=== PATIENT | male | born 1960 | race Caucasian/White ===

== ENCOUNTER 2019-08-07 13:19 | Outpatient (CLI) | payer MEDICARE, SELFPAY ==
--- NOTE | 2019-08-07 13:28 | XR_ITS ---
WS: [id number] RIGHT TIBIA-FIBULA 2 VIEWS HISTORY: PAIN IN RIGHT LOWER LEG COMPARISON: None available. No acute fracture or dislocation. No soft tissue abnormality. Heavy osteophytes projecting from the q uadriceps tendon attachment and the patellar tendon attachment from the patella. XR/XR tibia fibula RT 2V 13565 IMPRESSION: 1. Advanced enthesopathy at the patella. 2. No fractures or soft tissue abnormality.
== END 2019-08-07 13:20 | disposition home or self-care (01) ==
LOC: RADWPI 13:25
PROVIDERS: Family Provider Nurse Practitioner Family; PCP Nurse Practitioner Family; Visit Provider Nurse Practitioner Family
DX: M76.51 Patellar tendinitis, right knee (principal)
CPT/HCPCS: 73590

== ENCOUNTER 2023-03-27 12:45 | Emergency (ER) | payer MEDICARE, SELFPAY ==
[2023-03-27 12:53] VITALS: BP 126/76; PULSE 63; RESP 18; TEMP 36.7; O2SAT 96; BMI 44.7
--- NOTE | 2023-03-27 13:28 | W.ED.WEAKNES ---
HPI - Weakness General: Chief complaint: Weakness Stated complaint: temp and stuffy Time Seen by Provider: 03/27/23 13:07 Source: patient Mode of arrival: ambulatory History of Present Illness: 63-year-old male presents to the emergency room complaining of just generalized weakness not feeling well. He does have a little bit of a fever he said some cough its been nonproductive he is also had some loose stools. No hematochezia melena hematemesis or coffee-ground emesis he was convinced that he has a bladder infection he has had them multiple times reports states he feels the same way. MD Complaint: generalized weakness Onset (ago): day(s) Duration: intermittent Relieving factors: none Exacerbating factors: none Associated symptoms: Denies chest pain, chills, confusion, melena, decreased appetite, diaphoresis, dysuria, easy bruising, fever(s), headache(s), myalgias, nausea, rash, short of breath, syncope or vomiting Review of Systems Const: Reports: fatigue and malaise; Denies: fever(s), chills or diaphoresis ENMT: Denies: throat pain, ear or mastoid pain, nasal discharge or nasal congestion Card: Denies: chest pain, palpitations, irregular heart rhythm or syncope Resp: Reports: non-productive cough; Denies: dyspnea or productive cough GI: Denies: abdominal pain, nausea, vomiting or melena : Denies: dysuria, urinary frequency or urinary urgency Skin/Breast: Denies: rash or pruritus Neuro: Denies: headache(s) or confusion Jason/Lymph: Denies: easy bruising Physical Exam Const: GENERAL APPEARANCE: cooperative and comfortable ORIENTATION/CONSCIOUSNESS: Yes awake, Yes oriented to person, Yes oriented to place and Yes oriented to time HENMT: COMMON NORMALS: normocephalic, atraumatic and hearing grossly normal bilaterally HEAD & SCALP: normocephalic and atraumatic Resp: COMMON NORMALS: normal respiratory effort, No retractions, No use of accessory muscles and clear to auscultation bilaterally AUSCULTATION: clear to auscultation bilaterally Cardio: COMMON NORMALS: regular rate, regular rhythm and No murmurs present (Cardio) RATE: regular rate RHYTHM: regular rhythm GI: COMMON NORMALS: Soft to palpation and No hepatosplenomegaly present AUSCULTATION: Yes normoactive bowel sounds PALPATION: Yes Soft to palpation, No Tenderness to palpation present (GI), No Guarding due to palpation present (GI) and Yes No hepatosplenomegaly present Extremity: COMMON NORMALS: normal to inspection, capillary refill normal, no clubbing, cyanosis or edema, no calf tenderness and no pedal edema Neuro: SENSORIUM/ORIENTATION: Yes oriented to person, Yes oriented to place and Yes oriented to time Skin: COMMON NORMALS: no rashes or lesions noted GENERAL SKIN EXAM: no rashes or lesions noted Course Vital Signs: Vital signs: Vital Signs Temperature 98.0 F 03/27/23 12:53 Pulse Rate 57 L 03/27/23 14:26 Respiratory Rate 18 03/27/23 12:53 Blood Pressure 183/97 03/27/23 14:26 Pulse Oximetry 94 03/27/23 14:26 Oxygen Delivery Me thod Room Air 03/27/23 12:53 MDM - Weakness Medical Decision Making Labs reviewed white count is not elevated UA is negative discussed with patient I suspect based on his presenting symptoms that he does have COVID his vital signs are stable if he does we can treat with Paxlovid hold discharge patient home PCR was done before he was discharged we will contact him with results when they become available. Medical Records I reviewed the patient's medical records. Lab Data I reviewed the patient's lab results. 03/27/23 13:26 03/27/23 13:26 Laboratory Results WBC 4.20 10^3/uL (3.29-11.43) 03/27/23 13:26 RBC 5.35 10^6/uL (3.85-5.65) 03/27/23 13:26 Hgb 15.00 g/dL (11.27-16.99) 03/27/23 13:26 Hct 45.7 % (37-53) 03/27/23 13:26 MCV 85.4 fl (82-101) 03/27/23 13:26 MCH 28.0 pg (27-33) 03/27/23 13: MCHC 32.8 g/dL (30-55) 03/27/23 13: RDW 13.1 % (12.1-15.1) 03/27/23 13:26 Plt Count 114 10^3/cmm (157-399) L 03/27/23 13:26 MPV 10.9 fL (7.4-10.4) H 03/27/23 13:26 Neut % (Auto) 82.2 % 03/27/23 13:26 Lymph % (Auto) 9.3 % 03/27/23 13:26 [place] % (Auto) 7.6 % 03/27/23 13:26 Eos % (Auto) 0.0 % 03/27/23 13:26 Baso % (Auto) 0.7 % 03/27/23 13:26 Neut # (Auto) 3.45 10^3/uL (1.8-7.7) 03/27/23 13: Lymph # (Auto) 0.4 10^3/uL (0.8-4.8) L 03/27/23 13:26 [place] # (Auto) 0.3 10^3/uL (0.2-0.9) 03/27/23 13: Eos # (Auto) 0.0 10^3/uL (0.0-0.8) 03/27/23 13:26 Baso # (Auto) 0.0 10^3/uL (0.0-0.1) 03/27/23 13:26 Nucleated RBC % (auto) 0 % 03/27/23 13: Nucleated RBCs # 0.0 /100WBC 03/27/23 13:26 Sodium 135 mmol/L (136-145) L 03/27/23 13:26 Potassium 4.2 mmol/L (3.5-5.1) 03/27/23 13:26 Chloride 102 mmol/L (98-107) 03/27/23 13:26 Carbon Dioxide 24 mmol/L (22-29) 03/27/23 13:26 Anion Gap 13.2 (5-19) 03/27/23 13:26 BUN 13 mg/dL (8-23) 03/27/23 13:26 Creatinine 0.8 mg/dL (0.7-1.2) 03/27/23 13:26 GFR Calculation 97.6 mL/min (90-130) 03/27/23 13:26 Glucose 96 mg/dL (65-115) 03/27/23 13:26 Calculated Osmolality 280 mOsm/kg (285-295) L 03/27/23 13:26 Calcium 8.9 mg/dL (8.5-10.5) 03/27/23 13:26 Total Bilirubin 0.8 mg/dL (0.15-1.2) 03/27/23 13:26 AST 28 U/L (0-40) 03/27/23 13:26 ALT 33 U/L (0-41) 03/27/23 13:26 Alkaline Phosphatase 64 U/L (40-130) 03/27/23 13:26 Total Protein 7.2 g/dL (6.6-8.7) 03/27/23 13:26 Albumin 4.0 g/dL (3.5-5.2) 03/27/23 13:26 Globulin 3.2 g/dL (1.3-4.6) 03/27/23 13:26 Urine Color Yellow (Yellow) 03/27/23 13:05 Urine Appearance Clear (CLEAR) 03/27/23 13:05 Urine pH 6.5 (5-7) 03/27/23 13:05 Ur Specific [place] 1.000 (1.005-1.030) L 03/27/23 13:05 Urine Protein 1+ (Negative) H 03/27/23 13:05 Urine Glucose (UA) Norm (Normal) 03/27/23 13:05 Urine Ketones Negative (Negative) 03/27/23 13:05 Urine Blood Neg (Negative) 03/27/23 13:05 Urine Nitrate Negative (Negative) 03/27/23 13:05 Urine Bilirubin Neg (Negative) 03/27/23 13:05 Urine Urobilinogen Norm mg/dL (Negative) 03/27/23 13:05 Ur Leukocyte Esterase Negative (Negative) 03/27/23 13:05 Urine RBC 0-4 /hpf (0-2) H 03/27/23 13:05 Urine WBC 0-4 /hpf (0-5) H 03/27/23 13:05 Ur Squamous Epith Cells 0-4 /hpf (0-5) H 03/27/23 13:05 Amorphous Sediment Not Reportable 03/27/23 13:05 Urine Bacteria Trace /hpf (NONE) 03/27/23 13:05 No radiology studies performed this visit Discharge Plan Discharge Patient Disposition: Home Clinical Impression: Viral URI with cough, Suspected COVID-19 virus infection Condition: Stable Prescriptions: No Action tamsulosin 0.4 mg capsule 0.4 mg PO QPM tadalafil 5 mg tablet 5 mg PO QPM PRN (Reason: Erectile Dysfunction) Discharge Orders: Discharge ED (Routine); Ordered 03/27/23 Ordered By: Fausto Chavarria Referrals: Rebecca Yousif FNP [Primary Care Provider] - Discharge Diet: Usual diet Discharge Activity: Increase activity as tolerated Patient Instructions: COVID-19 (Coronavirus Disease 2019) (ED), Opioid Safety, Pain Management Activity Restrictions/Additional Instructions: You were seen today for complaint of fever and upper respiratory symptoms. Urine sample was negative. Suspect a of COVID COVID swab was done prior to discharge we will contact you with the results. Coding Level of Care Code ED [employer] Administrator for Robin Mast
[2023-03-27 13:37] LABS: Urine Appearance Clear (CLEAR); Urine Color Yellow (Yellow); pH Urine 6.5 (5-7)
[2023-03-27 13:38] LABS: Add Urine Culture? No; Add Urine Microscopic? YES; Bacteria Urine TRACE /hpf; Bilirubin Urine Neg (Negative); Blood Urine Neg (Negative); Glucose Urine UA Norm (Normal); Ketones Urine Negative (Negative); Leukocyte Esterase Urine Negative (Negative); Nitrate Urine Negative (Negative); Protein Urine 1+ (Negative); RBC Urine 0-4 /hpf (0-2); Squamous Epithelial Cell Urine 0-4 /hpf (0-5); Urobilinogen Urine Norm (Negative); WBC Urine 0-4 /hpf (0-5)
[2023-03-27 13:40] LABS: Basophils % 0.7 %; Hematocrit 45.7 % (37-53); Lymphocytes # 0.4 10^3/uL (0.8-4.8); Lymphocytes % 9.3 %; Mean Corpuscular HGB Conc 32.8 g/dL (30-55); Mean Corpuscular Volume 85.4 fl (82-101); Mean Platelet Volume 10.9 fL (7.4-10.4); Monocytes # 0.3 10^3/uL (0.2-0.9); Monocytes % 7.6 %; Neutrophils # 3.45 10^3/uL (1.8-7.7); Neutrophils % 82.2 %; Nucleated Red Blood Cells % 0 %; Platelet Count 114 10^3/cmm (157-399); Red Blood Count 5.35 10^6/uL (3.85-5.65); Red Cell Distribution Width 13.1 % (12.1-15.1)
[2023-03-27 14:02] LABS: Alanine Aminotransferase 33 U/L (0-41); Alkaline Phosphatase 64 U/L (40-130); Anion Gap 13.2 (5-19); Aspartate Amino Transferase 28 U/L (0-40); Blood Urea Nitrogen 13 mg/dL (8-23); Calcium 8.9 mg/dL (8.5-10.5); Carbon Dioxide 24 mmol/L (22-29); Chloride 102 mmol/L (98-107); Globulin 3.2 g/dL (1.3-4.6); Glomerular Filtration Rate 97.6 mL/min (90-130); Glucose 96 mg/dL (65-115); Osmolality Calculated 280 mOsm/kg (285-295); Potassium 4.2 mmol/L (3.5-5.1); Sodium 135 mmol/L (136-145); Total Bilirubin 0.8 mg/dL (0.15-1.2); Total Protein 7.2 g/dL (6.6-8.7)
[2023-03-27 14:26] VITALS: BP 183/97; PULSE 57; O2SAT 94
[2023-03-27 16:19] LABS: Adenovirus Not Detected (NOT DETECT); Chlamydia Pneumoniae Not Detected (NOT DETECT); Coronavirus 229E,HKU1,NL63,OC4 Not Detected (NOT DETECT); Human Metapneumovirus Not Detected (NOT DETECT); Human Rhinovirus/Enterovirus Not Detected (NOT DETECT); Influenza A Not Detected (NOT DETECT); Influenza A H1 Not Detected (NOT DETECT); Influenza A H1-2009 Not Detected (NOT DETECT); Influenza A H3 Not Detected (NOT DETECT); Influenza B Not Detected (NOT DETECT); Mycoplasma Pneumoniae Not Detected (NOT DETECT); Parainfluenza Virus Type 1 Not Detected (NOT DETECT); Parainfluenza Virus Type 2 Not Detected (NOT DETECT); Parainfluenza Virus Type 3 Not Detected (NOT DETECT); Parainfluenza Virus Type 4 Not Detected (NOT DETECT); Respiratory Syncytial Virus A Not Detected (NOT DETECT); Respiratory Syncytial Virus B Not Detected (NOT DETECT); SARS-COV-2 Not Detected (NOT DETECT)
== END 2023-03-27 14:27 | disposition home or self-care (01) ==
PROVIDERS: Emergency Provider Family Medicine; PCP Nurse Practitioner Family
DX: J06.9 Acute upper respiratory infection, unspecified (principal); R05.9 Cough, unspecified; Z20.822 Contact with and (suspected) exposure to COVID-19
CPT/HCPCS: 36415; 80053; 81001; 85025; 87635; 99283